=== PATIENT | female | born 1960 | race Caucasian/White ===

== ENCOUNTER 2020-02-29 14:15 | Emergency (ER) | payer MEDICAID, OTHER ==
[~2020-02-29] VITALS: Ht 160 cm; Wt 65.9 kg
--- NOTE | 2020-02-29 16:05 | NUR ---
Pt. reports no pain now
[2020-02-29 16:06] VITALS: BP 146/90
== END 2020-02-29 16:30 | disposition left against medical advice (07) ==
LOC: ER 14:16
DX: R07.81 Pleurodynia (principal)
CPT/HCPCS: 99281